=== PATIENT | female | born 1990 | race African-American/Black ===

== ENCOUNTER 2025-04-19 09:12 | Outpatient (OUT) | payer SELFPAY ==
--- NOTE | 2025-04-19 09:46 | US_ITS ---
The [address] [address] Patient Name: DEJON SANTANA MRN: [id number] date: 1990 Sex: F Assigned Patient Location: Current Patient Location: Accession/Order Number: [id number] Exam Date: 04/19/2025 10:59 Report Date: 04/19/2025 11:14 At the request of: NON-STAFF PHYSICIAN Procedure: US pelvis transvaginal Pelvic ultrasound. Reason for exam: Surrogate. Comparison: none Technique: Transabdominal imaging of the uterus and ovaries was performed. Transvaginal imaging of the uterus and ovaries was also obtained. Additional spectral Doppler analysis of the ovaries was also obtained. Findings: Uterus measures 9.2 x 4.4 x 5.1 cm. A measurable fibroid is seen. Endometrium measures 11.8 mm no focal abnormality. Trace free fluid is seen within the cul-de-sac. The right ovary measures 3.6 x 1.3 x 2.1 cm. 6 follicles are noted, largest measuring 6 mm. Left ovary measures 3.4 x 1.7 x 2.3 cm. There appears be at least 6 follicles noted largest measuring 5 mm. Normal arterial and venous Doppler waveforms. US/US pelvis transvaginal Impression: No suspicious findings. Impression dictated by: Bill Varela Jr., D.O. 04/19/2025 11:14 AM Dictation Location: [place] [address] Electronically authenticated by: [id number] Y Date: 04/19/2025 11:14
== END 2025-04-19 09:13 | disposition home or self-care (01) ==
LOC: US 09:16
DX: Z33.3 Pregnant state, gestational carrier (principal)
CPT/HCPCS: 36415; 76830; 82670; 84144

== ENCOUNTER 2025-04-24 08:56 | Outpatient (OUT) | payer SELFPAY | END 2025-04-24 08:57 | disposition home or self-care (01) | LOC: LAB 08:58 | DX: Z33.3 Pregnant state, gestational carrier (principal) | CPT/HCPCS: 36415; 82670; 84144 ==

== ENCOUNTER 2025-05-07 07:30 | Outpatient (OUT) | payer SELFPAY ==
--- OUTSIDE RECORDS SUMMARY | 2024-02-11 07:14 | XMS_ITS | Continuity of Care Document ---
Author Organization [facility] Address [address] [place] [address] Phone Care Team Providers Care Value Stream Coach Name Role Phone Wale Murphy Unavailable Unavailable Allergies, Adverse Reactions, Alerts Substance Reaction Status Criticality No Known Allergies Active No Inform ation Problems Condition Type Effective Dates (start - stop) Clini fr[place] Status Comments No Known Problems Procedures Procedure Date PREV VISIT, EST, AGE 18-39 Bp scrn perf rec interval DIAST BP < 80 MM HG SYST BP < 130 MM HG MED LIST DOCD IN RD RVW MEDS BY RX/DR IN [facility] Pt inelig neg scrn depres IMMUNIZATION ADMIN, EACH ADD MMR VACCINE, SC IMMUNIZATION ADMIN TDAP VACCINE >7 IM RAPID STI Chalm/Gonorr/Trich ROUTINE VENIPUNCTURE PREV VISIT, NEW, AGE 18-39 Donation Advance Directives Directive Yes / No Effective Date File Name No Information Encounters Encounter Description Practice Location Reason(s) For Visit Diagnoses Date Provider Providers Copied on Encounter [facility], [address], [place], [id number], [place] tel:[phone] [facility] No Information Maurilio Bashir. [address], [place], [id number] , [place]. tel:[phone] PREV VISIT, EST, AGE 18-39 [facility], [address], [place], [id number], [place] tel:[phone] [facility] Establish care, work physical (chief complaint) Encounter for general adult medical examination without abnormal findingsBody mass index [BMI] 27.0-27.9, adult Dec- 4 Clarence Torres. [address] [place], [address], [place]. tel:[phone] PREV VISIT, NEW, AGE 18-39 [facility], [address], [place], [id number], [place] tel:[phone] [facility] annual exam (chief complaint) Encounter for gynecological examination (general) (routine) without abnormal findingsEncounter for screening for HIVEncounter for STI screeningBody mass index [BMI] 27.0-27.9, adult- STD High risk heterosexual behavior 4 Andriy [facility] Kisha. [address], [place], [id number] , [place]. tel:[phone] Family History Family Member Type Diagnosis Age At Onset No Information Immunizations Vaccine Date Status Comments MMR administered Source: New Imm unization Record Tdap (Boostrix) administered Source: New Immunization Record Payers Payer name Insurance type Covered constitution party ID Authoriza tion(s) [employer] Medicaid CFC [id number] Medicaid Wrap - [facility] [id number] Hum[employer] Medicaid [place] [id number] Medicaid Wrap [facility] [id number] Social History Type Description Quantity Date Captured Comments Alcohol Use Details Unknown Caffeine Use Details Unknown Tobacco Use Status No Information Smoking Status No Information Sex Female Sexual Orientation Straight or heterosexual Gender Identity Female Chief Complaint And Reason For Visit No Information Reason For Referral Reason For Referral No Information Plan Of Treatment Date Type Action Status Goal Tdap Vaccine. Due on 2033 due Goal RLP. Due on due Goal HPV. Due on due Goal Unhealthy drug use screening . Due on due Goal Tdap due Goal Influenza vaccine. Due on Ma due Goal Hepatitis C screening. Due o n due Goal Depression screening. Due on due Goal PRAPARE ASSESSMENT. Due on M due Goal Hep A. Due on du e Goal HPV. Due on due Goal Hepatitis C screening. Due o n due Goal Tdap due Goal RLP. Due on due Goal Depression screening. Due on due Goal Tdap Vaccine. Due on 2033 due Goal Unhealthy drug use screening . Due on due Goal Influenza vaccine. Due on Ap due Goal PRAPARE ASSESSMENT. Due on A due Goal Lifestyle education regardin g diet completed Goal Unhealthy drug use screening . Due on due Goal RLP. Due on due Goal Hepatitis C screening. Due o n due Goal Hep A. Due on du e Goal Depression screening. Due on due Goal PRAPARE ASSESSMENT. Due on due Goal HPV. Due on due Goal Tdap Vaccine. Due on 2023 due Goal Influenza vaccine. Due on due Goal Tdap. Due on due Goal Dietary management education , guidance, and counseling completed Referral Ordered: Referrals: [facility] ordered History Of Present Illness Encounter Date Complaint History Of Prese nt Illness Establish care, work physical Pt is here for work physical. 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 Her employee does not require her to have a TB even though it's on her form. She will have her MMR and Tdap updated today. Pt denies issues or concerns. Marc Chen noted. Patient is a 33-year-old female. She denies any medical history. She states she recently moved to the area from [place] so that her children's father could be more involved in their care. She is here today for a work physical and states she will be working at [employer]. She denies any concerns or physical limitations that would limit her ability to complete her job responsibilities. She states she is working with [facility] in [place] and going through their process to be come a surrogate some time in the future.Medical history: DeniesSurgical history: DeniesVision exam: 2 years ago; wears glasses. Is aware that she is overdue and states she is going to call her insurance to find an in-network providerDental exam: Overdue. She is aware of [facility] dental services./ Raquel Lima APRN-[employer] annual exam Currently pregna nt: no. : 3. Parity: Term: 3. Livin.Client is contemplating . The client states using none for control. Last LMP was 11/13/2023. Patient's menses is regular with normal flow with a frequency of every 28 days. Negative for dysmenorrhea and menorrhagia. Negative for: breast discharge, breast lump(s), breast pain and breast self exam.Negative for Hormone replacement therapy. The client does not use tobacco. The client does drink alcohol. Additional information: Patient is here for annual exam and STD screen. 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 Will sign a medical release, so company can receive medical information prior to implantation. Denies JOB TRACER problems at this time. . Functional Status Date Functional Assessmen t No Information Instructions Date Instruction Additional Infor eileen Thank you for attend ing your physical exam today. It is recommended that you complete one of these yearly to ensure any preventative screening, testing, and blood work are completed. Continue to follow-up with your eye doctor every 1-2 years, and a dentist every 6 months for routine cleanings. If you need recommendations for these specialists, please let your provider know. Continue to exercise to the best of your ability. It is recommended you get at least 150 minutes of exercise per week. Try to focus on whole foods in your diet that contain whole grains. Limit white and processed foods like white rice, potatoes, pasta, sugar, sweets, and white flour. Related to Encounter for general adult medical examination without abnormal findings Giving encouragement to exercise Related to Body mass index [BMI] 27.0-27.9, adult Lifestyle education regarding di et Related to Body mass index [BMI] 27.0-27.9, adult HIV, RPR and Hep C d rawn and sent to lab. Patient to call in 1 week for result Related to Encounter for screening for HIV Rapid STD screen obt ained in office today. If result is negative patient will not receive a call. If positive, [facility] will call patient within 24 hours. Patient states understanding. Encouraged to use condoms in the future to prevent STDs Related to Encounter for STI screening Encouraged good diet isac intake, exercise and healthy lifestyle choices. Recommend daily multi-vitamin with Folic acid. Understands the need for non-violent partners in a consensual relationship. Patient does not desire a in the near future. Reviewed control options for prevention and does not desires BCM as she plans a surrogacy in the near future.Patient states she is up to date on her vaccines.Desires to get HIV, RPR and Hep C. Related to Encounter for gynecological examination (general) (routine) without abnormal findings Giving encouragement to exercise Related to Body mass index [BMI] 27.0-27.9, adult Dietary management e ducation, guidance, and counseling Related to Body mass index [BMI] 27.0-27.9, adult Assessments Type Assessment Date No Information Patient Care Teams Name Effective Dates (start - stop) Status Members No Information
--- OUTSIDE RECORDS SUMMARY | 2025-05-07 07:31 | XMS_ITS | Clinical Summary ---
Author Organization [facility] tem Address [facility] [id number] [address] [place] [address] Care Team Providers Care Forging Press Lever Tender Name Role Phone No Pcp, No Pcp Primary Care Provider Unavailabl e Allergies No known active allergies Medications No known medications Social History Tobacco Use Types Packs/Day Years Used Date Smoking Tobacco: Never Smokeless Tobacco: Never Tobacco Cessation:Counseling Given: Not Answered Alcohol Use Standard Drinks/Week Comments Yes 0 (1 standard drink = 0.6 oz pur e alcohol) Hunger Screening Answer Date Recorded Within the past 12 months we worried whether our food would run out before we got money to buy more. Never True 07/25/2024 Within the past 12 months th e food we bought just didn't last and we didn't have money to get more. Never True 07/25/2024 Comments Unknown Sex and Gender Information Value Date Recorded Sex Assigned at Not on file Legal Sex Female 9:43 AM EDT Gender Identity Not on file Sexual Orientation Not on file Last Filed Vital Signs Vital Sign Reading Time Taken Comments Blood Pressure 115/91 07/25/2024 1:15 PM EDT Pulse 91 07/25/2024 1:30 PM EDT Temperature 37.1 C (98.7 F) 07/25/2024 12:01 PM EDT Respiratory Rate 14 07/25/2024 1:30 PM EDT Oxygen Saturation 96% 07/25/2024 1:16 PM EDT Inhaled Oxygen Concentration - - Weight 81.6 kg (180 lb) 07/25/2024 12:01 PM EDT Height 170.2 cm (5' 7 ) 07/25/2024 12:01 PM EDT Body Mass Index 28.19 07/25/2024 12:01 PM EDT Plan of Treatment Health Maintenance Due Date Last Done Comments Depression Screening 2004 Adult BMI Follow Up Plan 2010 Pap Smear 2013 Influenza Vaccine 05/28/2025 Adult BMI Screening 07/25/2025 07/25/2024 Tobacco Screening 07/25/2025 07/25/2024 DTaP,Tdap and Td Vaccines (2 - Td or Tdap) 01/06/2034 01/07/2024 Medical Devices Not on file Insurance [facility] [email or web address] [place] [employer] Care Teams Forging Press Lever Tender Relationship Specialty Start Date End Date No Pcp[place] [id number] PCP - General Family Medicine 03/03/24
--- NOTE | 2025-05-07 07:32 | US_ITS ---
[address] [address] Patient Name: DEJON SANTANA MRN: [id number] date: 1990 Sex: F Assigned Patient Location: Current Patient Location: Accession/Order Number: [id number] Exam Date: 05/07/2025 08:13 Report Date: 05/07/2025 08:16 At the request of: NON-STAFF PHYSICIAN Procedure: US pelvis transvaginal Pelvic ultrasound. Reason for exam: Surrogate Comparison: Ultrasound 04/19/2025 Technique: Transvaginal imaging of the uterus and ovaries was also obtained. Additional spectral Doppler analysis of the ovaries was also obtained. Findings: Uterus measures 9.0 x 4.7 x 5.8 cm. No fibroid. Endometrium is trilaminar in appearance measuring 11 mm. Right ovary measures 4.1 x 1.9 x 3.0 cm. 17 follicles are noted largest measuring 6 x 4 mm. Left ovary measures 2.6 x 2.3 x 2.0 cm. 13 follicles are noted largest measuring 7 x 3 mm. Trace free fluid. US/US pelvis transvaginal Impression: No acute process. Impression dictated by: Bill Varela Jr., D.O. 05/07/2025 8:16 AM Dictation Location[facility] Electron[facility] authenticated by: [id number] Y Date: 05/07/2025 08:16
== END 2025-05-07 07:31 | disposition home or self-care (01) ==
LOC: US 07:30
DX: Z31.83 Encounter for assisted reproductive fertility procedure cycle (principal)
CPT/HCPCS: 36415; 76830; 82670; 84144